=== PATIENT | female | born 1970 | race Caucasian/White ===

== ENCOUNTER → 2016-08-24 | Outpatient (CLI) | payer OTHER ==
[~2016-08-24] VITALS: Ht 154.9 cm; Wt 95.2 kg
[~2016-08-24] MED LIST: CYCLOBENZAPRINE10 MG PO; FLEXERIL10 MG PO; MEDROL4 MG PO; NAPROSYN500 MG PO; ULTRAM50 MG PO; VITAMIN D2000 UNI1 PO
== END | disposition home or self-care (01) ==
LOC: AMB 08:12
DX: K29.70 Gastritis, unspecified, without bleeding (principal); K31.9 Disease of stomach and duodenum, unspecified; K31.7 Polyp of stomach and duodenum; K92.1 Melena; R10.13 Epigastric pain; K64.8 Other hemorrhoids; K20.9 Esophagitis, unspecified; K57.30 Diverticulosis of large intestine without perforation or abscess without bleeding; E55.9 Vitamin D deficiency, unspecified; G62.9 Polyneuropathy, unspecified; Z80.0 Family history of malignant neoplasm of digestive organs; Z82.61 Family history of arthritis; Z87.891 Personal history of nicotine dependence
CPT/HCPCS: 88305; 88342 TC; J2250; J3010